=== PATIENT | male | born 1945 | race Caucasian/White ===

== ENCOUNTER → 2016-11-08 | Outpatient (CLI) | payer MEDICARE, OTHER ==
--- NOTE | 2016-11-08 14:02 | CT ---
EXAM DESCRIPTION: CTA Runoff CLINICAL HISTORY: 71 years, Male, AAA COMPARISON: June 06, 2007 TECHNIQUE: CTA of the abdomen and pelvis with bilateral lower extremity runoff was performed with IV contrast including 3D reformatted images. This exam was performed according to our departmental dose-optimization program, which includes automated exposure control, adjustment of the mA and/or kV according to patient size and/or use of iterative reconstruction technique. FINDINGS: There is a 3.0 cm infrarenal abdominal aortic aneurysm, significantly decreased in size from the patient's prior exam. Again seen are mild mural calcifications at the origins of the celiac axis and superior mesenteric artery without significant stenosis. Bilateral accessory renal arteries are noted,, probably 2 on each side. There is some calcification at the origin of both main renal arteries with at least mild stenosis at the origin of the main left renal artery. An aortobifemoral graft is present without apparent complication. The [place] distal abdominal aorta, common, internal and external iliac arteries are likely thrombosed. There is no evidence of anastomotic stenosis in either iliac limb. Calcified and noncalcified plaque results in moderate short segment stenosis of the right common femoral artery. The right profunda femoral artery is perfused. There is mural calcification in the right superficial artery resulting in mild to moderate short segment stenosis at several levels. Mild atherosclerotic disease involves the right popliteal artery without stenosis or aneurysm. There is mild to moderate atherosclerotic disease in the right lower extremity below the level of the right knee with patency of at least the right peroneal artery at the level of the right ankle. There is diffuse mild atherosclerotic disease involving the left common and superficial femoral arteries with only mild short segment stenosis at 1 and 2 levels in the left SFA. The left profunda femoral artery is perfused. The left popliteal artery is fairly well-maintained with only mild mural calcification but no stenosis or aneurysm. There is diffuse moderate atheromatous disease in the left lower extremity below the level of the left knee with patency of the left posterior tibial artery at the level of the left ankle. A small hiatal hernia is only partially visualized. The spleen is enlarged, measuring at least 16 cm in length. There are few tiny round low density right renal lesions which are too small to characterize but likely represent cysts. Surgical clips in the right lower quadrant are likely related to prior appendectomy. There is colonic diverticulosis without diverticulitis. IMPRESSION: Aortobifemoral graft in place without apparent complication. A 3 cm infrarenal abdominal aortic aneurysm lies just superior to the origin of the graft from the abdominal aorta, significantly decreased in size from the patient's previous CT performed in June,. AAA Size: Follow-up Recommendation : 2.6-2.9 cm Every 5 years 3.0-3.4 cm Every 3 years 3.5-3.9 cm Every 1 year 4.0-4.4 cm Every 1 year, vascular consultation recommended 4.5-5.4 cm Every 6 months, vascular consultation recommended >5.5 cm Vascular surgery consultation recommended 1. J Vasc Surg. 2009 Feb;50(4 Suppl):S2-49 2. For aortas with maximum diameter of 2.6-2.9 cm meeting the criteria for AAA (>50% of proximal normal segment) Mild to moderate atherosclerotic vascular disease in both lower extremities as detailed above. No focal high-grade stenosis. Colonic diverticulosis without diverticulitis and other nonacute findings as detailed above. Electronically signed by: Cesario Moreno MD 11/08/2016 2:02 PM CDT Workstation: [email or web address]
== END | disposition home or self-care (01) ==
LOC: CT 07:41
PROVIDERS: ATTEND Nuclear Medicine Nuclear Cardiology
DX: I71.4 Abdominal aortic aneurysm, without rupture (principal)

== ENCOUNTER → 2017-04-01 | Outpatient (CLI) | payer MEDICARE, OTHER | END | disposition home or self-care (01) | LOC: GMAB 14:02 | PROVIDERS: ATTEND Family Medicine | DX: Z12.5 Encounter for screening for malignant neoplasm of prostate (principal); I10 Essential (primary) hypertension ==

== ENCOUNTER → 2017-04-09 | Outpatient (CLI) | payer MEDICARE, OTHER ==
--- NOTE | 2017-04-10 07:47 | CT ---
EXAM DESCRIPTION: Chest w/o Contrast CT. CLINICAL HISTORY: COUGH COMPARISON: None. TECHNIQUE: Spiral-axial scans at 5.0 mm intervals through the lungs and thorax without IV contrast. Coronal and sagittal 2.0 Mm reconstructions. Total Exam DLP: 678.83 mGy-cm. This exam was performed according to our departmental dose-optimization program which includes automated exposure control, adjustment of the mA and/or kV according to patient size and/or use of iterative reconstruction technique; to reduce radiation dose to as low as reasonably achievable (ALARA). FINDINGS: Bilateral prominent airspaces and small blebs throughout the lung parenchyma more prevalent in the upper lung gonzalez than the lower gonzalez. Radio-dense, oval-shaped mass with lobulated borders and no definite spiculation is noted abutting the right middle lobe bronchial branches and right middle lobe pulmonary arterial branches. The mass measures approximately 2.2 cm craniocaudally and 2.4 x 1.6 cm in the axial plane, (series 2, image 41). No associated calcifications. Thickened bronchial rousseau abutting the mass. 10 x 9 mm nodule which is dense but with partially lobulated and smooth borders in the lateral anterior inferior right middle lobe (image 49), just above/anterior to the diaphragm. No associated calcifications. There may be a segment slightly smaller nodule more medially abutting the diaphragm. Groundglass densities peripherally in the lower aspect of the right upper lobe. No pleural effusion or pneumothorax bilaterally. Heterogeneously dense thyroid gland bilaterally with no soft tissue masses or lymph nodes abutting the gland in the base of the neck. Small lymph nodes in the upper mediastinum. Lymph nodes in the azygos region and short axis measurement 7 mm and 9 mm. Short axis lymph node in the anterior superior right hilum 9 mm. Subcarinal lymph node short axis 7 mm. Lymph node in the superior left hilum. Short axis 4.5 mm. Evaluation of mediastinum and hilum for lymph nodes and soft tissue masses is limited due to lack of IV contrast. Atherosclerotic calcifications in the proximal brachiocephalic vessels and thoracic aorta. Coronary artery calcifications. No enlarged lymph nodes in the axillary regions. No subdiaphragmatic fluid or free air in the included peritoneal space. 1 x 1.5 cm enlargement of the superior right adrenal gland. Hounsfield density -5. Calcification in the included spleen. Multiple levels of thoracic spondylosis. Degenerative changes in the left glenohumeral joint. Also in the bilateral sternoclavicular joints and the right glenohumeral joint. No bone destruction. IMPRESSION: 1. Oval-shaped mostly smooth bordered 2.4 cm mass in the inferior right hilum and medial aspect of the right middle lobe which has suspicious findings for malignancy. One enlarged lymph node in the superior right hilum. 10 mm nodule in the inferior lateral subpleural right middle lobe which is suspicious findings for metastasis. Emphysematous changes more prevalent in the upper lung gonzalez and peripheral groundglass infiltrate in the right upper lobe. Consider follow-up scan with IV contrast for better definition of mediastinal and hilar adenopathy in the right lung tumors. Consider percutaneous versus endobronchial tissue sampling for diagnosis. 2. Spondylosis thoracic spine. Right adrenal adenoma. Electronically signed by: Leonardo Wagner MD 04/10/2017 7:47 AM [facility]
== END | disposition home or self-care (01) ==
LOC: CT 16:23
PROVIDERS: ATTEND Family Medicine
DX: R05 Cough (principal)

== ENCOUNTER → 2017-04-16 | Outpatient (CLI) | payer MEDICARE, OTHER ==
--- NOTE | 2017-04-17 08:49 | CT ---
EXAM DESCRIPTION: Chest w/Contrast CT. CLINICAL HISTORY: COUGH. Right hilar mass. Right middle lobe nodule. COMPARISON: CT scan of the chest without IV contrast 04/09/2017. TECHNIQUE: Spiral-axial scans at 2.5 mm intervals through the lungs and thorax with IV contrast. Helical 2.5 mm lung algorithm axial reconstructions. Helical coronal and sagittal 2.0 Mm reconstructions. No adverse reactions. Total Exam DLP: 752.40 mGy-cm. This exam was performed according to our departmental dose-optimization program which includes automated exposure control, adjustment of the mA and/or kV according to patient size and/or use of iterative reconstruction technique; to reduce radiation dose to as low as reasonably achievable (ALARA). FINDINGS: Bilateral thyroid gland enhancement in the base of the neck. No abnormal lymph nodes in the base of the neck. No enlarged lymph nodes in the mediastinum. Normal enhancement of the great vessels. No adenopathy in the axillary regions. 2 adjacent nodes in the superior right hilum measuring 8 mm and 1 cm in the short axis. These are inferior to the origin of the right upper lobe pulmonary bronchus. More inferior oval-shaped mass measuring 2.1 x 1.3 cm between the right middle lobe bronchus and the right middle lobe pulmonary artery. Second morris/mass more posterior to the bronchus measures 1.4 x 1.0 cm. Both nodes well-demonstrated series 102, image 78. These nodes are medial to the mass described on the prior CT scan which is abutting pulmonary artery and pulmonary vein branches and bronchial branches (images 78-86). This mass does not particularly enhance, dimensions 4.2 cm transverse, 2.1 cm AP, and 2.6 cm craniocaudal. A third node approximately 1.2 x 1.2 cm is more inferior and posterior abutting the right lower lobe pulmonary artery and bronchus (image 79). Small nodes in the azygos chain AP window and left hilum. Again noted is centrilobular emphysematous changes in the bilateral upper lobes with groundglass density in the lateral segment right middle lobe 12 millimeter soft tissue nodule with no calcifications and no definite spiculations in the subpleural lateral base of the lateral segment of the right middle lobe (image 100), No abnormal enhancement in the included spleen liver pancreas or kidneys. No abnormal adrenal enhancement. Atherosclerotic changes in the thoracic and abdominal aorta. IMPRESSION: 1. Abnormal right hilar nodes abutting the right hilar mass, more distinctly visualized compared to the prior study. These nodes and the mass appear to be accessible for transbronchial tissue sampling. 12 mm nodule in the subpleural lateral inferior right middle lobe should be amenable to percutaneous image guided biopsy. The peripheral right hilar mass is interpreted to be to closely abutted by right pulmonary arterial and vein branches for percutaneous tissue sampling. Electronically signed by: Leonardo Wagner MD 04/17/2017 8:48 AM [employer]
== END ==
LOC: CT 10:07
PROVIDERS: ATTEND Family Medicine
DX: R05 Cough (principal); R91.8 Other nonspecific abnormal finding of lung field

== ENCOUNTER → 2018-04-09 | Outpatient (CLI) | payer MEDICARE, OTHER | LOC: GMAE 10:45 | PROVIDERS: ATTEND Family Medicine | DX: I10 Essential (primary) hypertension (principal) ==

== ENCOUNTER 2018-06-16 09:30 | Inpatient (IN) | payer MEDICARE, OTHER ==
--- NOTE | 2018-06-16 09:52 | ED.PDOC ---
History of Present Illness - General Chief Complaint: Respiratory Problem Stated Complaint: Cough, congestion Time Seen by Provider: 06/16/18 09:45 Source: patient Exam Limitations: no limitations - History of Present Illness Initial Comments: Patient presents with dyspnea, cough, and congestion for one week. He said he did have some mild right sided chest pain on three different occasions last week that resolved. His dyspnea is worse with coughing and activity. 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 He denies pain at this time or any other symptoms. Timing/Duration: 1 week Severity: mild Improving Factors: rest Worsening Factors: other - exertion Associated Symptoms: other - as in HPI Allergies/Adverse Reactions: Allergies NO KNOWN ALLERGY Allergy (Unverified 12/06/14 10:13) Home Medications: Ambulatory Orders Aspirin [Baby Aspirin] 162 mg PO BEDTIME 12/06/14 Losartan Potassium [Cozaar] 100 mg PO BEDTIME 12/06/14 Simvastatin [Zocor] 40 mg PO BEDTIME 12/06/14 Carvedilol 3.125 mg PO BID 06/16/18 Celecoxib 200 mg PO DAILY 06/16/18 Omeprazole [Omeprazole Dr] 20 mg PO DAILY 06/16/18 Simvastatin 40 mg PO BEDTIME 06/16/18 Review of Systems - Review of Systems Constitutional: States: no symptoms reported EENTM: States: no symptoms reported Respiratory: States: see HPI Gastrointestinal/Abdominal: States: see HPI Genitourinary: States: no symptoms reported Musculoskeletal: States: no symptoms reported Skin: States: no symptoms reported Neurological: States: no symptoms reported Endocrine: States: no symptoms reported Hematologic/Lymphatic: States: no symptoms reported Past Medical History (General) - Patient Medical History Hx Stroke: No Hx Cardiac Disorders: Yes - arrhythmia Hx Congestive Heart Failure: No Hx Hypertension: Yes Hx Diabetes: No Hx Gastroesophageal Reflux: Yes 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 - chemo/rad, finished 05/2017 - Vaccination History Hx Influenza Vaccination: Yes - 2018 Hx Pneumococcal Vaccination: No - Social History Hx Tobacco Use: Yes Family Medical History - Family History Father Family History: No Known Living Status: Physical Exam - Physical Exam General Appearance: Alert Eye Exam: bilateral normal Ears, Nose, Throat: normal ENT inspection Neck: non-tender, full range of motion, supple Respiratory: wheezing - right upper, middle, and lower lobe expiratory wheezing Cardiovascular/Chest: normal peripheral pulses, regular rate, rhythm Gastrointestinal/Abdominal: normal bowel sounds, non tender, soft Back Exam: normal inspection, no CVA tenderness Extremity: normal range of motion, non-tender, normal inspection Neurologic: no motor/sensory deficits, alert, normal mood/affect, oriented x 3 Skin Exam: normal color Lymphatic: no adenopathy Progress - Progress Progress: 06/16/18 12:44 Laboratory Tests 06/16/18 06/16/18 06/16/18 10:04 10:04 10:04 WBC 3.5 L RBC 3.07 L Hgb 12.4 L Hct 35.7 L MCV 116.1 H MCH 40.3 H MCHC 34.9 RDW 14.6 H Plt Count 119 L MPV 7.3 L Absolute Neuts (auto) 3.00 Absolute Lymphs (auto) 0.40 L Absolute Monos (auto) 0.20 Absolute Eos (auto) 0.00 Absolute Basos (auto) 0.00 Neutrophils % 84.3 H Lymphocytes % 10.0 L Monocytes % 5.5 Eosinophils % 0.1 L Basophils % 0.1 Normal RBC Morphology Plts katlyn decreased Sodium 132 L Potassium 3.4 L Chloride 100 L Carbon Dioxide 24 Anion Gap 11.4 L BUN 15 Creatinine 1.06 BUN/Creatinine Ratio 14.2 Random Glucose 104 Serum Osmolality 265.7 L Lactic Acid Calcium 8.5 Total Bilirubin 1.3 H AST 22 ALT 21 Alkaline Phosphatase 62 Creatine Kinase 37 L CK-MB (CK-2) 1.0 CK-MB (CK-2) % 2.70 Troponin I 0.02 B-Natriuretic Peptide 281.0 H* Serum Total Protein 6.6 Albumin 3.1 L Globulin 3.5 Albumin/Globulin Ratio 0.9 L 06/16/18 12:05 WBC RBC Hgb Hct MCV MCH MCHC RDW Plt Count MPV Absolute Neuts (auto) Absolute Lymphs (auto) Absolute Monos (auto) Absolute Eos (auto) Absolute Basos (auto) Neutrophils % Lymphocytes % Monocytes % Eosinophils % Basophils % Normal RBC Morphology Sodium Potassium Chloride Carbon Dioxide Anion Gap BUN Creatinine BUN/Creatinine Ratio Random Glucose Serum Osmolality Lactic Acid 1.7 Calcium Total Bilirubin AST ALT Alkaline Phosphatase Creatine Kinase CK-MB (CK-2) CK-MB (CK-2) % Troponin I B-Natriuretic Peptide Serum Total Protein Albumin Globulin Albumin/Globulin Ratio Duonebs x one give. D-dimer elevated. CTA showed tumor in right middle lobe with increasing pleural effusion. neutrophils 84.3%. wbc 3.5 Patient was given Rocephin 1 gram IV and Azithromycin 500 mg po in the E.R. and admitted for pneumonia. Patient has refused transfer to another hospital. 06/16/18 12:48 Departure - Departure Clinical Impression: Pneumonia Disposition: Admit Patient Condition: Fair Departure Forms: ED Discharge - Pt. Copy, Patient Portal Self Enrollment Diet: other - as per hospitalist Home Medications: Ambulatory Orders Aspirin [Baby Aspirin] 162 mg PO BEDTIME 12/06/14 Losartan Potassium [Cozaar] 100 mg PO BEDTIME 12/06/14 Simvastatin [Zocor] 40 mg PO BEDTIME 12/06/14 Carvedilol 3.125 mg PO BID 06/16/18 Celecoxib 200 mg PO DAILY 06/16/18 Omeprazole [Omeprazole Dr] 20 mg PO DAILY 06/16/18 Simvastatin 40 mg PO BEDTIME 06/16/18
--- NOTE | 2018-06-16 11:03 | RAD ---
EXAM DESCRIPTION: Chest,2 Views CLINICAL HISTORY: 73 years Male, wheezing, history or right lung cancer COMPARISON: CT chest dated dated April 16, 2017. TECHNIQUE: PA and lateral radiographs of the chest were obtained. FINDINGS: The trachea appears midline. The cardiomediastinal silhouette is within normal limits. The pulmonary vasculature appears unremarkable. Interval development of airspace opacification in the right middle and lower lobes concerning for underlying pneumonia although underlying malignancy cannot be completely excluded. Atelectatic changes are noted at the right lung base with scarring related interstitial changes. Probable small right pleural effusion. Focal 1 cm nodular opacity in the right lower lobe could represent a noncalcified nodule in comparison to the recent chest CT dated April 16, 2017. IMPRESSION: 1. Interval development of consolidative changes in the right middle and lower lobes concerning for underlying pneumonia, although underlying malignancy cannot be completely excluded in comparison to prior CT chest dated April 16, 2017. Right lower lobe atelectatic changes with probable small pleural effusion. If there is clinical index of suspicion for lung cancer, a CT chest with contrast is recommended for further evaluation. Electronically signed by: Francisco Pop MD 06/16/2018 11:00 AM [facility]
[2018-06-16] MEDS ORDERED: ACETAMINOPHEN 325 MG TAB PO ONE (11:17)
[2018-06-16] MEDS ORDERED: SODIUM CHLORIDE 0.9% 1000ML 1,000 ML IVS PRN (11:18)
[2018-06-16] MEDS ORDERED: IPRATROPIUM/ALBUTEROL 3 ML VIAL NEB ONE ×2 (11:42→11:43)
--- NOTE | 2018-06-16 12:28 | CT ---
EXAM DESCRIPTION: CTA Chest: Computed Tomography. CLINICAL HISTORY: elevated d-dimer, lung CA, dyspnea COMPARISON: CT scan of the thorax, 04/16/2017. TECHNIQUE: Spiral-axial scans at 2.5 x 2.5 mm intervals through the pulmonary arteries and chest after bolus infusion of IV contrast. Lung algorithm 1.5 x 2.5-mm axial reconstructions. Coronal and sagittal 2 x 2 Mm reconstructions. 10.0 mm PE oblique 3-D reformatted images. No adverse reactions. Total Exam DLP: 1012.06 mGy-cm. This exam was performed according to our departmental CT dose-optimization program which includes automated exposure control, adjustment of the mA and/or kV according to patient size and/or use of iterative reconstruction technique; to reduce radiation dose to as low as reasonably achievable (ALARA). FINDINGS: Heart and great vessels: Pulmonary artery is well demonstrated from the main pulmonary artery to the bilateral proximal subsegmental branches of the pulmonary arteries with no filling defects. No anomalous vascularity. Atherosclerotic calcifications on the aortic arch and the descending thoracic aorta. Atherosclerotic calcifications also in the brachiocephalic vessels and coronary arteries. Lungs and airways: Prominent reticular aeration in the peripheral right upper lobe laterally along with right upper lobe volume loss and multiple blebs and bulla associated with the parenchymal abnormalities. New, multifocal groundglass infiltrates in the right middle lobe and right lower lobe. Also new right perihilar consolidation and fibrosis. Centrilobular blebs left upper lobe and left lower lobe. Scattered tiny groundglass densities left lung. Pleura and spaces: Large right pleural effusion. Minimal left pleural effusion and thickening. No pneumothorax. Brittany and mediastinum: No enlarged lymph nodes or soft tissue masses. Chest wall soft tissues, lower neck, and axilla: No enlarged lymph nodes or soft tissue masses. Proximal mid and distal mid esophagus dilated by air and fluid. Upper abdomen: No free air or fluid in the included peritoneal space. Normal size and enhancement of the included spleen and adrenal glands. Gallbladder partially visualized. Moderate atherosclerotic involvement with calcifications upper abdominal aorta and major included branch vessels. Osseous structures: Minimal spondylosis at multiple levels. Arthrosis of the bilateral sternoclavicular joints left more severe in the right and arthrosis right glenohumeral joint. No lytic or blastic lesions. IMPRESSION: 1. CTA of the pulmonary arteries showing no evidence of acute or significant chronic pulmonary embolus. Atherosclerotic changes of the aorta no evidence of aneurysm or rupture. Atherosclerosis brachiocephalic vessels and coronary arteries. 2. Significant volume loss in the right hemithorax since cancer treatment with reticulation and fibrosis in the right upper lobe along with emphysematous changes. Scattered multifocal groundglass densities indicating a eosinophilic like response in the right lower lobe with volume loss. Also new large right pleural effusion. Left lung is stable. 3. No significant increase in lymph nodes or soft tissue masses in the mediastinum left hilum, or chest wall. Moderate degenerative changes in the thorax. Electronically signed by: Leonardo Wagner MD 06/16/2018 12:26 PM [employer]NAL [employer]
[2018-06-16] MEDS ORDERED: cefTRIAXone SODIUM 1 GM in SODIUM CHL 0.9% 50ML MIN-BAG+ 50 ML IVPB ONE (12:36)
[2018-06-16] MEDS ORDERED: AZITHROMYCIN 250 MG TAB PO ONE (12:37)
[2018-06-16] MEDS ORDERED: SODIUM CHL 0.9% 50ML MIN-BAG+ 50 ML IVPB ONE ×2 (12:47→21:02)
[2018-06-16] MEDS ORDERED: cefTRIAXone SODIUM 1 GM VIAL ONE (12:47)
--- NOTE | 2018-06-16 13:03 | HP ---
SUPERVISING PHYSICIAN: Zhang Perez M.D. CHIEF COMPLAINT: Cough and congestion. HISTORY OF PRESENT ILLNESS: Mr. 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 Today he presented to the [facility] complaining of increasing dyspnea, cough and congestion that started last Saturday. He had tried [id number] remedies having no success in treatment. He was going to go to Dr. Perez's office today but was having significant shortness of breath and then presented to the [facility]. [facility] In the E. R[facility] he was denying any chest pains but was obviously short of breath with any exertional effort even at rest. Vital signs showed he was tachycardic at 127, satting 87% on room air with a temperature 98.8 and blood pressure 91/67. Initial chest x-ray indicated he had the interval development of consolidative changes in the right middle and lower lobes concerning for underlying pneumonia. His lab work indicated he had an elevated D-dimer at 7.32. Given that he was tachycardic and short of breath a CT of the chest was done to further rule out any pulmonary embolus. Per radiology interpretation on the CTA of the chest there was note of no evidence of acute significant cardiopulmonary embolus. There was note of significant volume loss in the right hemithorax since his cancer treatment with reticulation and fibrosis in the right upper lobe along with emphysematous changes and scattered multifocal glass densities indicating eosinophilic like response in the lower lobe with volume loss. There is also note of a new large right pleural effusion. The left lung base was noted to be stable. The patient was given some fluids and started on antibiotics to include Rocephin initially and azithromycin, and given supplemental oxygen which did raise his O2 levels up to 96% on 3.5 liters nasal cannula. Given the patient's symptoms and underlying co-morbidities to include lung cancer and findings on CT concerning for developing right sided pneumonia, Dr. Robles, E. R. physician, requested the patient be admitted for ongoing treatment of right sided pneumonia. PAST MEDICAL HISTORY: 1. History of hypertension. 2. Abdominal aortic aneurysm. 3. Coronary artery disease. 4. Peripheral vascular disease. 5. Diabetes mellitus. 6. Recent diagnosis of small cell lung cancer with metastasis to brain diagnosed in 2018. 7. Chronic obstructive pulmonary disease. PAST SURGICAL HISTORY: 1. Aortic aneurysm repair in 2007. 2. Peripheral vascular disease status post aortofemoral bypass surgery 2007. HOME MEDICATIONS: 1. Melatonin 5 mg at bedtime. 2. B12 1,000 mcg at bedtime. 3. Unasyn 25 mg at bedtime. 4. Omeprazole 20 mg daily. 5. Baby aspirin 162 mg at bedtime. 6. Simvastatin 40 mg at bedtime. 7. Celebrex 200 mg daily. 8. Zocor 40 mg daily. 9. Cozaar 100 mg at bedtime. 10. Carvedilol 3.125 mg b.i.d. ALLERGIES: NO KNOWN DRUG ALLERGIES. FAMILY HISTORY: There is a history of coronary artery disease in the family. 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 He is and has 2 children. Lives in [place], [place]. He has smoked at least 1.5 packs a day for 55 years. He denies any significant alcohol usage except for occasional beer consumption. Denies any illicit drug use. REVIEW OF SYSTEMS: CONSTITUTIONAL: Positive for chills, fever, general malaise. No reported unintentional weight loss. HEENT: Positive for nasal congestion, frequent headaches due to brain metastasis. Negative for any visual disturbances, ear aches, sore throat. RESPIRATORY: As noted in history of present illness, increasing shortness of breath, wheezing, exertional dyspnea and productive cough. GASTROINTESTINAL: Negative for any abdominal pains, constipation, diarrhea. GENITOURINARY: Denies any dysuria, hematuria or polyuria. SKIN: No reported rashes, lesions, moles. NEUROLOGIC: Frequent headaches secondary to metastasis to the brain currently on Dexamethasone. Denies any ataxia, syncopal episodes, seizure activity, visual disturbances, other focal deficits. HEMATOLOGY: Denies any unexplained bleeding, easy bruising. PHYSICAL EXAMINATION: VITAL SIGNS: Temperature in the E. R. was 98.8, pulse 127, blood pressure 91/67, respirations 30, satting 87% on room air. After initiation of treatment with breathing treatments, he was satting 93% on nasal cannula at 4 liters, blood pressure with fluids was up to 101/43 and he was continuing to show to be tachycardic at 119. Admission weight 99.6 kg. GENERAL: The patient appears to be well nourished, well hydrated. He obviously does not feel good but is in no apparent acute distress. HEENT: Tympanic membranes were clear bilaterally. Oropharynx was pink and moist without any notable lesions or rashes. NECK: Supple, non-tender. Full range of motion. No jugular venous distention. CHEST: Lung sounds were diminished throughout with some inspiratory and expiratory wheezing more prominent on the right compared to the left. CARDIOVASCULAR: Regular rate and rhythm, showing to be tachycardic on the monitor. ABDOMEN: Soft, non-tender. Positive bowel sounds. EXTREMITIES: Moves all extremities ad karmen. There is no obvious motor deficits. No clubbing, cyanosis or edema. NEUROLOGIC: Cranial nerves II-XII are grossly intact. Facial features were symmetrical. Extraocular movements are within normal limits. There is no notable nystagmus. He was alert and oriented times three with no other motor or focal sensory deficits. SKIN: Normal color, pink, warm with no lesions or rashes. LABORATORY: CBC shows white count 3,500 with hemoglobin 12.4, hematocrit 35.7. RBC indices indicate a macrocytic presentation with platelet count 119,000. Differential does show a left shift with 2+ macrocytosis, 1+ anisocytosis. Coags show normal PT and PTT. D-dime is elevated at 7.32. Chemistry showed a mild hyponatremia with sodium 132, potassium 3.4, carbon dioxide 24, BUN 15, creatinine 1.06, glucose 104, lactic acid 1.7, calcium 8.5. Bilirubin slightly elevated at 1.3. All other liver enzymes were showing to be within normal limits. Troponin was 0.02, BNP was slightly elevated at 281. Urinalysis was pending. MICROBIOLOGY: Influenza A and B by PCR after he presented to the floor showed to be positive for A, negative for B. Sputum culture is pending. RADIOLOGY: Initially his chest x-ray in the E. R., single view chest, per radiology interpretation again showed interval development of a consolidative process changes in the right middle lobe and lower lobes concerning for pneumonia. There was also note of right lower lobe atelectasis changes of probable small pleural effusion. This was followed-up with CT of the chest and per radiology interpretation showed pulmonary arteries well demonstrated with main pulmonary artery to be with no filling defects. No evidence of acute significant chronic pulmonary embolus. There was note of significant volume loss in the right hemithorax since cancer treatment with reticulation and fibrosis in the right upper lobe along with emphysematous changes and scattered multifocal groundglass densities indicating eosinophilic like response in the right lower lobe with volume loss. Also note of a new large right pleural effusion. Left lung showed to be stable. There were no significant increase in lymph nodes or soft tissue masses in the mediastinum, left hilum or chest wall. ASSESSMENT: 1. Exacerbation of chronic obstructive pulmonary disease with right middle and lower lobe pneumonia. 2. Viral pneumonia with positive Influenza A with a secondary bacterial pneumonia as noted in #1. 3. Sepsis with the patient being tachycardic and hypotensive, mildly afebrile with leukocytosis secondary to #1 and #2. 4. History of small cell lung cancer status post radiation and chemotherapy showing to be stable with metastasis stable to the brain having received radiation therapy. 5. Electrolyte imbalance with hyponatremia and hypokalemia secondary to underlying small cell lung cancer and pneumonia process. 6. Elevated D-dimer with no evidence of a pulmonary embolus on CTA of the chest probably due to underlying metastatic and cancer process involving the lung as well as developing pneumonia. 7. History of hypertension with last echocardiogram completed in 2008 with a normal systolic function and ejection fraction of 65%. 8. Diabetes mellitus type 2. 9. Chronic tobacco abuse and nicotine addiction in a patient with a history of chronic obstructive pulmonary disease. PLAN: The patient is going to be admitted to the Medical/Surgical floor for initiation and treatment of pneumonia, community acquired. Given that he has multiple risk factors, including current findings on CTA of the chest to indicate a significant pneumonia process with underlying lung cancer, we are going to treat him aggressively as well since he had positive flu. Will start him on Cefepime and Levaquin for concerns for possible Pseudomonas and add vancomycin for coverage of gram positives with concerns for multidrug resistant Staphylococcus aureus. He will have aggressive pulmonary hygiene with DuoNeb breathing treatments. Will start him on some Solu-Medrol given his significant amount of COPD and emphysema and is wheezing, will give initial dose of 125 mg. Will continue with Solu-Medrol 60 mg every 6 hours for 3 doses and reevaluate in the morning. He will be placed on droplet isolation due to flu. Will start him on Tamiflu for further treatment of Influenza A. For the electrolyte imbalance will go ahead and give him a bolus of normal saline and continue with an infusion of normal saline with 20 of potassium at 80 an hour. In regards to the large pleural effusion, I will consult with Dr. Francis tomorrow and see if there is any need for possible surgical consultation and thoracentesis at this point. He will be on DVT prophylaxis as per protocol. He will be on insulin sliding scale per protocol. Will anticipate length of stay to be at least 2 to 3 days. Once he is able to transition to outpatient management he will need complete followup with his primary care provider, Dr. Perez, his rolls baker who is Dr. Valentin and his oncologist, Dr. Morrow. Until he can transition to outpatient management will continue to monitor and treat as needed. #[id number] [facility]
[2018-06-16] MEDS ORDERED: ONDANSETRON INJ 4 MG/2 ML VIAL IV PRN (13:06)
[2018-06-16] MEDS ORDERED: ALBUTEROL SULFATE 2.5 MG/3 ML VIAL NEB PRN (13:06)
[2018-06-16] MEDS ORDERED: MAGNESIUM HYDROXIDE 30 ML UD PO PRN (13:06)
[2018-06-16] MEDS ORDERED: IBUPROFEN 400 MG TAB PO PRN (13:06)
[2018-06-16] MEDS ORDERED: ACETAMINOPHEN 325 MG TAB PO PRN (13:06)
[2018-06-16] MEDS ORDERED: methylPREDNISolone SODIUM SUC 125 MG/2 ML VIAL IV ONE (13:55)
[2018-06-16] MEDS ORDERED: BUDESONIDE NEBS 0.5 MG/2 ML VIAL NEB ONE (13:56)
[2018-06-16] MEDS: IV SET AND CAP CHANGE INJ INJ SCH (14:34)
[2018-06-16] MEDS: KCL 20 MEQ/NS 1,000 ML IVS PRN (14:36)
[2018-06-16] MEDS ORDERED: SODIUM CHLORIDE 0.9% 500ML 500 ML IVS ONE (14:38)
[2018-06-16] MEDS ORDERED: VANCOMYCIN PER PHARMACY INJ SCH (15:00)
[2018-06-16] MEDS: levoFLOXacin 750MG IV 750 MG in PREMIX BAG 1 BAG IVPB SCH (15:34)
[2018-06-16] MEDS: BIFIDOBACTERIUM INFANTIS 4 MG CAP PO SCH (15:34)
[2018-06-16] MEDS: OSELTAMIVIR 75 MG CAP PO SCH ×2 (15:35→20:03)
[2018-06-16] MEDS ORDERED: DEXTROSE 50% 25 GM/50 ML SYG IV PRN (16:33)
[2018-06-16] MEDS ORDERED: GLUCAGON INJ 1 MG VIAL SUBCU PRN (16:33)
[2018-06-16] MEDS ORDERED: NON-FORMULARY MEDICATION 1 EA MIS (Melatonin [Melatonin] 5 MG) PO PRN (16:35)
[2018-06-16] MEDS ORDERED: SODIUM CHLORIDE 0.9% 250ML 250 ML ONE (16:53)
[2018-06-16] MEDS ORDERED: VANCOMYCIN HCL INJ 1,000 MG VIAL IVPB ONE (16:53)
[2018-06-16] MEDS ORDERED: VANCOMYCIN HCL INJ 500 MG VIAL ONE (16:53)
[2018-06-16] MEDS: VANCOMYCIN HCL INJ 1,000 MG, VANCOMYCIN HCL INJ 250 MG in SODIUM CHLORIDE 0.9% 250ML 25... IVPB SCH (16:59)
[2018-06-16] MEDS: PANTOPRAZOLE SODIUM IV 40 MG VIAL IV SCH (16:59)
[2018-06-16] MEDS: IPRATROPIUM/ALBUTEROL 3 ML VIAL INH SCH ×2 (17:01→20:01)
[2018-06-16] MEDS: methylPREDNISolone SODIUM SUC 125 MG/2 ML VIAL IV SCH ×2 (17:16→23:50)
[2018-06-16] MEDS: BUDESONIDE NEBS 0.5 MG/2 ML VIAL NEB SCH (20:01)
[2018-06-16] MEDS: SIMVASTATIN 20 MG TAB PO SCH (20:03)
[2018-06-16] MEDS: LOSARTAN POTASSIUM 100 MG TAB PO SCH (20:04)
[2018-06-16] MEDS: ASPIRIN (CHEWABLE) 81 MG TAB PO SCH (20:04)
[2018-06-16] MEDS: CARVEDILOL 3.125 MG TAB PO SCH (20:04)
[2018-06-16] MEDS: CYANOCOBALAMIN 1,000 MCG TAB PO SCH (20:04)
[2018-06-16] MEDS: TEMAZEPAM 15 MG CAP PO PRN (20:39)
[2018-06-16] MEDS: DOXYLAMINE SUCCINATE 25 MG PO SCH (20:39)
[2018-06-16] MEDS ORDERED: CEFEPIME 2 GM VIAL ONE (21:02)
[2018-06-16] MEDS: INSULIN LISPRO 100 UNITS/ML PEN SUBCU SCH (21:08)
[2018-06-16] MEDS: CEFEPIME 2 GM in SODIUM CHL 0.9% 50ML MIN-BAG+ 50 ML IVPB SCH (21:09)
[2018-06-17] MEDS ORDERED: VANCOMYCIN HCL INJ 500 MG VIAL ONE ×3 (03:49→19:14)
[2018-06-17] MEDS ORDERED: VANCOMYCIN HCL INJ 1,000 MG VIAL IVPB ONE ×3 (03:49→19:16)
[2018-06-17] MEDS ORDERED: SODIUM CHLORIDE 0.9% 250ML 250 ML ONE ×3 (03:49→19:15)
[2018-06-17] MEDS: VANCOMYCIN HCL INJ 1,000 MG, VANCOMYCIN HCL INJ 250 MG in SODIUM CHLORIDE 0.9% 250ML 25... IVPB SCH ×2 (03:52→16:52)
[2018-06-17] MEDS ORDERED: SODIUM CHL 0.9% 50ML MIN-BAG+ 50 ML IVPB ONE ×3 (04:43→19:15)
[2018-06-17] MEDS ORDERED: CEFEPIME 2 GM VIAL ONE ×3 (04:44→19:16)
[2018-06-17] MEDS: methylPREDNISolone SODIUM SUC 125 MG/2 ML VIAL IV SCH (05:12)
[2018-06-17] MEDS: CEFEPIME 2 GM in SODIUM CHL 0.9% 50ML MIN-BAG+ 50 ML IVPB SCH ×3 (05:12→21:01)
[2018-06-17] MEDS: PANTOPRAZOLE SODIUM IV 40 MG VIAL IV SCH (05:46)
[2018-06-17] MEDS ORDERED: OMEPRAZOLE CAP 20 MG CAP PO SCH (06:30)
--- NOTE | 2018-06-17 07:20 | RAD ---
EXAM DESCRIPTION: Chest,2 Views CLINICAL HISTORY: Pneumonia COMPARISON: Chest CT June 16, 2018. FINDINGS: Frontal and lateral views of the thorax. Multifocal pneumonia throughout the right middle lobe and right lower lobe is stable in appearance. The small right-sided subpulmonic effusion is less conspicuous with this modality. The heart and mediastinum are stable in appearance. IMPRESSION: Stable multifocal right middle lobe and right lower lobe pneumonia with small effusion. Electronically signed by: Blaine Santos MD 06/17/2018 7:17 AM [facility]
[2018-06-17] MEDS: IPRATROPIUM/ALBUTEROL 3 ML VIAL INH SCH ×4 (08:01→20:20)
[2018-06-17] MEDS: BUDESONIDE NEBS 0.5 MG/2 ML VIAL NEB SCH ×2 (08:01→20:20)
[2018-06-17] MEDS: INSULIN LISPRO 100 UNITS/ML PEN SUBCU SCH ×4 (08:24→21:01)
[2018-06-17] MEDS: CELECOXIB 100 MG CAP PO SCH (08:28)
[2018-06-17] MEDS: BIFIDOBACTERIUM INFANTIS 4 MG CAP PO SCH (08:28)
[2018-06-17] MEDS: OSELTAMIVIR 75 MG CAP PO SCH ×2 (08:28→20:15)
[2018-06-17] MEDS: CARVEDILOL 3.125 MG TAB PO SCH ×2 (08:28→20:16)
[2018-06-17] MEDS: KCL 20 MEQ/NS 1,000 ML IVS PRN (08:33)
[2018-06-17] MEDS ORDERED: AZITHROMYCIN 250 MG TAB PO SCH (09:00)
--- NOTE | 2018-06-17 10:52 | CONS ---
DATE OF CONSULTATION: 06/17/18 HISTORY OF PRESENT ILLNESS: The patient is a 73-year-old male who was admitted through the Emergency Room with shortness of breath, cough, congestion. He self-medicated with [id number] medications and did not improve. He presented to the Emergency Room short of breath and at that time, he was admitted. The patient's history is significant for small cell carcinoma of the right lung with metastasis to the brain. He is status post radiation therapy both for the lung, to the brain and intravenous chemotherapy. The patient states he previously had a pleural effusion which they started to drain at [facility], but decided against it due to its size and I have been asked to consider thoracentesis for the current pleural effusion that was found yesterday on CT scan and chest x-ray. PAST MEDICAL HISTORY: 1. Abdominal aortic aneurysm with repair. 2. Chronic obstructive pulmonary disease. 3. Coronary artery disease. 4. Peripheral vascular disease status post aorto-fem bypass in 2007. 5. Diabetes. CURRENT MEDICATIONS: 1. Omeprazole. 2. Baby aspirin. 3. Simvastatin. 4. Celebrex. 5. Cozaar. 6. Carvedilol. 7. Melatonin. 8. B12. ALLERGIES: NO KNOWN DRUG ALLERGIES. FAMILY HISTORY: Positive for coronary artery disease. SOCIAL HISTORY: The patient is a retired electrical design engineer. He is and has two children. He has a greater than 60 pack year history of tobacco use. He drinks beer occasionally. REVIEW OF SYSTEMS: He had fever, chills and malaise along with wheezing, dyspnea and productive cough. He denies abdominal pain, nausea, vomiting, change in his bowel habits. The patient continues to have headaches associated with his brain disease. PHYSICAL EXAMINATION: GENERAL: The patient is awake, alert, cooperative, in mild to moderate distress. He denies pain, but his respiratory rate is greater than 20 and he is short of breath while breathing. He does state he feels much better than yesterday. HEENT: Sclerae nonicteric. Mucous membranes moist. NECK: Without adenopathy. CHEST: Decreased breath sounds in the right base and bilateral wheezing anteriorly. HEART: Regular rate and rhythm. ABDOMEN: Benign. EXTREMITIES: Without edema. LABORATORY: Normal white count, hemoglobin is low at 11. PT/INR within normal limits, but D-dimer is elevated at 7.32. Creatinine 1.06. BNP slightly elevated. CTA of the chest revealed no pulmonary embolus and showed right sided pleural effusion. ASSESSMENT: 1. The patient with shortness of breath secondary to possible radiation pneumonitis of the right chest, right pleural effusion, influenza and possibly pneumonia along with the underlying small cell carcinoma of the right lung with metastasis to the brain. PLAN: The patient seems to be quite improved since yesterday in his opinion, so there is no acute need for intervention with the thoracentesis, so we will follow the patient. If he does not continue to improve, we will consider thoracentesis with culture, cytology and chemistries as appropriate. #[id number] [facility]
[2018-06-17] MEDS: ENOXAPARIN SODIUM 40 MG/0.4 ML SYG SUBCU SCH (12:01)
--- NOTE | 2018-06-17 13:28 | PN ---
SUPERVISING PHYSICIAN: Tyrese Perez MD DATE: 06/17/18 SUBJECTIVE: The patient notes his breathing has improved significantly overnight although he still continues to require oxygen. Dr. Francis was able to see the patient in consultation this morning and we are currently going to watch and wait in regards to possible thoracentesis as he is showing some improvement overnight with current treatment plan. He has remained afebrile. He has no chest pains, but he has started to have some diarrhea. In fact, he had three episodes overnight. OBJECTIVE: VITAL SIGNS: Temperature 97.1. Pulse 61. Blood pressure 100/61. Respirations 20. Saturation 97% on 3 liters nasal cannula at rest. I&Os show a positive balance of 1060 with 1660 in, 600 out. Weight 99.6 kg. GENERAL: The patient looks like he feels better this morning. He is not quite as dyspneic in appearance. He is alert. CHEST: Lung sounds are slightly improved from yesterday, but significantly diminished towards both bases, more so on the right than the left. HEART: Regular rate and rhythm. ABDOMEN: Obese, but soft and nontender. Positive bowel sounds. EXTREMITIES: No cyanosis, clubbing or edema. NEUROLOGIC: Alert and oriented times three. LABORATORY: White count 4,600, hemoglobin 9.6, hematocrit 27.6, platelet count 100,000 with a left shift noted on differential. Chemistries show normal electrolytes with potassium 4, BUN 60, creatinine 1.06, blood sugars between 177 and 237. Calcification 8.0. Urinalysis within normal limits. MICROBIOLOGY: Influenza A and B positive for A. RADIOLOGY: Chest x-ray this morning per radiologic interpretation shows stable multifocal right mid lobe and right lower lobe pneumonia with small effusion. ASSESSMENT: 1. Exacerbation of chronic obstructive pulmonary disease with right middle and lower lobe pneumonia, community acquired secondary to a recent influenza pneumonitis. 2. Viral pneumonia/pneumonitis secondary to influenza A with a secondary bacterial infection as noted in #1. 3. Sepsis with the patient being tachycardic, hypotensive and mildly afebrile with leukocytosis on admission, secondary to #1 and #2, improving with treatment. 4. History of small cell lung cancer status post radiation and chemotherapy, stable with metastasis stable to the brain having received radiation therapy. 5. Electrolyte imbalance with hyponatremia and hypokalemia, improved and back to baseline with fluids. 6. Elevated D-dimer with no evidence of a pulmonary embolus on CTA, likely due to underlying metastatic and cancer process involving the lung as well as developing pneumonia. 7. History of hypertension with last echocardiogram completed in 2008 with a normal systolic function and ejection fraction of 65% with the patient being mildly hypotensive on admission, but now back to baseline levels with fluid resuscitation. 8. Diabetes mellitus, type 2, stable. 9. Chronic tobacco abuse and nicotine addiction in a patient with a history of chronic obstructive pulmonary disease. PLAN: We will continue with current plan of care at this point with aggressive management with antibiotics to include Levaquin, cefepime and vancomycin with concerns for Pseudomonas and multi-drug resistant Staphylococcus aureus given his past medical history and underlying cancer. He will continue with Solu- Medrol. As he continues to show improvement, we will titrate him down to oral prednisone. We will await reassessment in the morning in regards to possible thoracentesis and Dr. Francis's recommendation. We will repeat labs in the morning as well as chest x-ray. Until he can transition to outpatient management, we will continue to monitor and treat as needed. Again, once discharged, he will need followup with his primary care physician, Dr. Perez, his monitor and storage bin tender, Dr. Valentin, and his oncologist, Dr. Morrow. #[id number] [facility]
[2018-06-17] MEDS ORDERED: cefTRIAXone SODIUM 1 GM in SODIUM CHL 0.9% 50ML MIN-BAG+ 50 ML IVPB SCH (13:30)
[2018-06-17] MEDS: levoFLOXacin 750MG IV 750 MG in PREMIX BAG 1 BAG IVPB SCH (14:51)
[2018-06-17] MEDS ORDERED: MELATONIN 3 MG TAB ONE (19:17)
[2018-06-17] MEDS: TEMAZEPAM 15 MG CAP PO PRN (20:13)
[2018-06-17] MEDS: LOSARTAN POTASSIUM 100 MG TAB PO SCH (20:14)
[2018-06-17] MEDS: ASPIRIN (CHEWABLE) 81 MG TAB PO SCH (20:14)
[2018-06-17] MEDS: CYANOCOBALAMIN 1,000 MCG TAB PO SCH (20:15)
[2018-06-17] MEDS: SIMVASTATIN 20 MG TAB PO SCH (20:15)
[2018-06-17] MEDS: DOXYLAMINE SUCCINATE 25 MG PO SCH (20:17)
[2018-06-18] MEDS: KCL 20 MEQ/NS 1,000 ML IVS PRN ×2 (00:41→16:49)
[2018-06-18] MEDS: VANCOMYCIN HCL INJ 1,000 MG, VANCOMYCIN HCL INJ 250 MG in SODIUM CHLORIDE 0.9% 250ML 25... IVPB SCH (04:20)
[2018-06-18] MEDS ORDERED: CEFEPIME 2 GM VIAL ONE ×3 (04:26→19:04)
[2018-06-18] MEDS ORDERED: SODIUM CHL 0.9% 50ML MIN-BAG+ 50 ML IVPB ONE ×3 (04:26→19:04)
[2018-06-18] MEDS: PANTOPRAZOLE SODIUM IV 40 MG VIAL IV SCH (06:14)
[2018-06-18] MEDS: CEFEPIME 2 GM in SODIUM CHL 0.9% 50ML MIN-BAG+ 50 ML IVPB SCH ×3 (06:22→21:26)
--- NOTE | 2018-06-18 07:24 | RAD ---
EXAM: Two view chest. INDICATION: Pneumonia. COMPARISON: Chest x-ray: 06/17/2018. FINDINGS: Again noted are airspace opacities along the right upper, middle and lower lobes. The left lung is clear. The heart size is stable. There is a small right pleural effusion. There is no pneumothorax. The bones are unremarkable. IMPRESSION: Grossly stable airspace opacities within the right lung Electronically signed by: Eren Chatterjee MD 06/18/2018 7:22 AM [facility] Workstation: [id number]
[2018-06-18] MEDS: INSULIN LISPRO 100 UNITS/ML PEN SUBCU SCH ×4 (08:23→21:09)
[2018-06-18] MEDS: CARVEDILOL 3.125 MG TAB PO SCH ×2 (08:25→20:41)
[2018-06-18] MEDS: BIFIDOBACTERIUM INFANTIS 4 MG CAP PO SCH (08:25)
[2018-06-18] MEDS: CELECOXIB 100 MG CAP PO SCH (08:25)
[2018-06-18] MEDS: OSELTAMIVIR 75 MG CAP PO SCH ×2 (08:25→20:41)
[2018-06-18] MEDS: ENOXAPARIN SODIUM 40 MG/0.4 ML SYG SUBCU SCH (08:26)
[2018-06-18] MEDS: BUDESONIDE NEBS 0.5 MG/2 ML VIAL NEB SCH ×2 (09:01→20:05)
[2018-06-18] MEDS: IPRATROPIUM/ALBUTEROL 3 ML VIAL INH SCH ×4 (09:01→20:05)
[2018-06-18] MEDS ORDERED: MELATONIN 3 MG TAB PO PRN (10:00)
[2018-06-18] MEDS: levoFLOXacin 750MG IV 750 MG in PREMIX BAG 1 BAG IVPB SCH (14:27)
[2018-06-18] MEDS: SIMVASTATIN 20 MG TAB PO SCH (20:40)
[2018-06-18] MEDS: ASPIRIN (CHEWABLE) 81 MG TAB PO SCH (20:41)
[2018-06-18] MEDS: CYANOCOBALAMIN 1,000 MCG TAB PO SCH (20:41)
[2018-06-18] MEDS: TEMAZEPAM 15 MG CAP PO PRN (20:41)
[2018-06-18] MEDS: LOSARTAN POTASSIUM 100 MG TAB PO SCH (20:41)
[2018-06-18] MEDS: DOXYLAMINE SUCCINATE 25 MG PO SCH (20:42)
--- NOTE | 2018-06-18 22:03 | PN ---
DATE: 06/18/18 SUPERVISING PHYSICIAN: Zhang Perez M.D. SUBJECTIVE: The patient feels like he has not made much more progress than yesterday. He has been sitting in a chair. I discussed with him that given his H&H and the pleural effusion on the right and his significant pneumonia process, more likely he will need to have some oxygen once he is discharged and he understands this. I did discuss the fact that if he does drop his H&H anymore, the possibility of doing a transfusion is there certainly to help with his respiratory effort. He has been afebrile. He continues with a mild cough that is nonproductive. OBJECTIVE: VITAL SIGNS: Temperature 97.8, pulse 69, blood pressure 118/63, respirations 18, satting 95% on 3 liters nasal cannula at rest. I's and O's show a positive balance of 1210 with 2810 in, 1500 out. He has had 1 bowel movement. Weight is 99.6 kg. CHEST: Lung sounds are fairly improved from yesterday. He does have some rhonchi heard on the right and more prominent on the lateral posterior aspect towards the base compared to the left but no wheezing. HEART: Regular rate and rhythm. ABDOMEN: Soft, non-tender. Positive bowel sounds. EXTREMITIES: Without any edema. NEUROLOGIC: He is alert and oriented times three. LABORATORY: White count 4,800, hemoglobin has dropped to 8.5, hematocrit 24.9. He does have a macrocytic presentation with his RBC indices with a platelet count that is now down to 92 compared to yesterday at 100 and his differential does continue to show a left shift. Chemistries: Blood sugars are between 150s and 180s. Yesterday his electrolytes and renal function were near baseline levels. He had 1 occult stool blood that was negative. He had a vancomycin trough at 15. MICROBIOLOGY: Stool culture is pending. Leukocyte esterase for stools was positive with Clostridium Difficile for toxin A and B being negative. RADIOLOGY: A repeat chest x-ray this morning of 2 view chest per radiology interpretation shows grossly stable airspace opacities within the right lung with a small right pleural effusion. ASSESSMENT: 1. Exacerbation of chronic obstructive pulmonary disease with right middle and lower lobe pneumonia, community acquired, secondary to recent influenza pneumonitis due to Influenza A with the patient having significant co-morbidities including current lung cancer requiring more aggressive management with concerns for possible Pseudomonas infection. 2. Viral pneumonia versus pneumonitis secondary to influenza A with a continued secondary bacterial pneumonia as noted in #1. 3. Sepsis with the patient initially showing to be hypotensive and tachycardic and febrile with leukocytosis on admission secondary to #1 and #2, improving with treatment. 4. 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 5. Electrolyte imbalance with hyponatremia and hypokalemia, resolved back to baseline after fluids. 6. Elevated D-dimer with no evidence of a pulmonary embolus on CTA, felt to be due to metastatic process as well as cancer of the lung and underlying developing pneumonia. 7. History of hypertension, although hypotensive on admission with last echocardiogram in 2008 showing a normal systolic function and ejection fraction of 65% with the patient showing to be hemodynamically stable after fluid resuscitation. 8. Diabetes mellitus, type 2, stable. 9. Chronic tobacco abuse with chronic nicotine addiction in a patient with a history of chronic obstructive pulmonary disease. PLAN: Will continue with aggressive management. In regards to his antibiotics, however, will start to deescalate as today will drop off vancomycin and continue with treatment with the concern being more for Pseudomonas, therefore will leave him on Cefepime and Levaquin. He is continued on Solu-Medrol and will stair step him down to oral prednisone. Dr. Francis continues to follow the patient in regards to the possible need for a diagnostic therapeutic thoracentesis, however at this point the pleural effusion on the right seems to be fairly small and stable, but will continue to follow along with Dr. Francis. Will repeat labs as needed in the morning as well as repeat a chest x-ray. Once he can transition to outpatient management he will need close followup with his primary who is Dr. Perez and design printer balloon, Dr. Valentin, and oncologist, Dr. Morrow. He will also need to go home on oxygen. Will qualify him and should he qualify, he will need a prescription prior to discharge. He feels like he would benefit from oxygen anyway as he has been short of breath prior to this episode, therefore will assess him with an ambulation study as soon as possible. [facility][id number] [facility]
[2018-06-19] MEDS ORDERED: CEFEPIME 2 GM VIAL ONE ×3 (04:03→21:17)
[2018-06-19] MEDS: KCL 20 MEQ/NS 1,000 ML IVS PRN ×2 (04:53→21:43)
[2018-06-19] MEDS: CEFEPIME 2 GM in SODIUM CHL 0.9% 50ML MIN-BAG+ 50 ML IVPB SCH ×3 (05:37→21:41)
[2018-06-19] MEDS: SODIUM CHLORIDE 0.9% (FLUSH) 10 ML SYG IV PRN (06:00)
[2018-06-19] MEDS: PANTOPRAZOLE SODIUM IV 40 MG VIAL IV SCH (06:00)
[2018-06-19] MEDS: INSULIN LISPRO 100 UNITS/ML PEN SUBCU SCH ×4 (07:27→21:44)
--- NOTE | 2018-06-19 07:34 | RAD ---
EXAM DESCRIPTION: Chest,2 Views CLINICAL HISTORY: fu up effusion COMPARISON: June 18, 2018 FINDINGS: Two-view chest x-ray shows mild enlargement of the cardiac silhouette without pulmonary vascular congestion. The left lung is normally aerated with mild increased interstitial thickening in the left anterior lower chest similar to previous. Interstitial nodular airspace densities in the right mid to lower chest is less dense than previous exam. Mild right lateral pleural thickening is seen. Decreased blunting of the right costophrenic angle since previous exam is noted. Volume loss in the right lower chest with elevation of the hemidiaphragm is seen.. Moderate disc degenerative changes of the spine are noted. IMPRESSION: Mild interval improvement of airspace opacifications in the right hemithorax with stable volume loss. Interval decrease in right pleural effusion compared to previous exam. Electronically signed by: Ranulfo Blackmon MD 06/19/2018 7:32 AM THREAD WINDER
[2018-06-19] MEDS: BIFIDOBACTERIUM INFANTIS 4 MG CAP PO SCH (08:29)
[2018-06-19] MEDS: ENOXAPARIN SODIUM 40 MG/0.4 ML SYG SUBCU SCH (08:29)
[2018-06-19] MEDS: CELECOXIB 100 MG CAP PO SCH (08:29)
[2018-06-19] MEDS: CARVEDILOL 3.125 MG TAB PO SCH ×2 (08:29→21:40)
[2018-06-19] MEDS: predniSONE 20 MG TAB PO SCH (08:29)
[2018-06-19] MEDS: OSELTAMIVIR 75 MG CAP PO SCH ×2 (08:30→21:40)
[2018-06-19] MEDS: BUDESONIDE NEBS 0.5 MG/2 ML VIAL NEB SCH ×2 (08:40→20:45)
[2018-06-19] MEDS: IPRATROPIUM/ALBUTEROL 3 ML VIAL INH SCH ×4 (08:40→20:45)
[2018-06-19] MEDS ORDERED: POTASSIUM CHLORIDE 20 MEQ TAB PO ONE (09:11)
[2018-06-19] MEDS ORDERED: diphenhydrAMINE HCL 25 MG CAP PO ONE (12:30)
[2018-06-19] MEDS ORDERED: diphenhydrAMINE HCL 25 MG CAP PO PRN (13:27)
--- NOTE | 2018-06-19 13:56 | PN ---
SUPERVISING PHYSICIAN: Tyrese Perez MD DATE: 06/19/18 SUBJECTIVE: The patient is sitting up in his bed. He complains of some lower back pain, but feels it is from stiffness and lying in bed. He also said he would like his [id number]-[id number] sleeping aid restarted as sometimes that helps with his sleep. I said I would start it, but he does have a sleeping pill ordered. He gets some shortness of breath with exertion and is quite concerned about going home and his oxygen being low. He is also quite concerned with having low blood sugars. I discussed buying a blood sugar machine and what ranges needed to be treated and to take fasting blood sugars and record them so he could take them to his primary care physician's office visit. OBJECTIVE: VITAL SIGNS: Temperature 98.7. Heart rate 68. Blood pressure 119/69. Respiratory rate 20. O2 saturation 97% on 2 liters nasal cannula. RESPIRATORY: Diminished at the bases with some distant breath sounds, but otherwise clear to auscultation. CARDIAC: Regular rate and rhythm. GASTROINTESTINAL: Abdomen is soft, nondistended, nontender. Bowel sounds are positive. NEUROLOGIC: Awake, alert and oriented times three. LABORATORY: WBCs 3.3, hemoglobin 8.9, hematocrit 26.1, platelet count 89. Blood sugars have run between 65 and 151. Stool culture is pending. Chest x- ray shows mild interval improvement of airspace opacities on the right. Hemithorax with stable volume loss. Interval decrease in right pleural effusion compared to previous exam. All other labs and films have been reviewed via the EMR. ASSESSMENT: 1. Exacerbation of chronic obstructive pulmonary disease with right middle and lower lobe pneumonia, community acquired, secondary to recent influenza pneumonitis due to Influenza A with the patient having significant co-morbidities including current lung cancer requiring more aggressive management with concerns for possible Pseudomonas infection. 2. Viral pneumonia versus pneumonitis secondary to influenza A with a continued secondary bacterial pneumonia as noted in #1. 3. Sepsis with the patient initially showing to be hypotensive and tachycardic and febrile with leukocytosis on admission secondary to #1 and #2, improving with treatment. 4. 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 5. Electrolyte imbalance with hyponatremia and hypokalemia, resolved back to baseline after fluids. 6. Elevated D-dimer with no evidence of a pulmonary embolus on CTA, felt to be due to metastatic process as well as cancer of the lung and underlying developing pneumonia. 7. History of hypertension, although hypotensive on admission with last echocardiogram in 2008 showing a normal systolic function and ejection fraction of 65% with the patient showing to be hemodynamically stable after fluid resuscitation. 8. Diabetes mellitus, type 2, stable. 9. Chronic tobacco abuse with chronic nicotine addiction in a patient with a history of chronic obstructive pulmonary disease. PLAN: We will continue present supportive care. He is continuing on cefepime and Levaquin. I have also done an ambulation study for home oxygen and he has met qualifications for home O2. I will also speak with Dr. Francis as he has seen the patient today and we will go with his recommendations. I have ordered lab and chest x-ray in the morning. I will also ordered home O2 today so it can be ready for his discharge. We will continue to monitor the patient closely and follow as needed. Dr. Perez is the collaborating physician and available for consultation. #[id number] [facility]
[2018-06-19] MEDS: IV SET AND CAP CHANGE INJ INJ SCH (13:57)
[2018-06-19] MEDS ORDERED: SODIUM CHL 0.9% 50ML MIN-BAG+ 50 ML IVPB ONE ×2 (14:49→21:16)
[2018-06-19] MEDS: levoFLOXacin 750MG IV 750 MG in PREMIX BAG 1 BAG IVPB SCH (15:21)
[2018-06-19] MEDS: SIMVASTATIN 20 MG TAB PO SCH (21:39)
[2018-06-19] MEDS: ASPIRIN (CHEWABLE) 81 MG TAB PO SCH (21:40)
[2018-06-19] MEDS: CYANOCOBALAMIN 1,000 MCG TAB PO SCH (21:40)
[2018-06-19] MEDS: DOXYLAMINE SUCCINATE 25 MG PO SCH (21:40)
[2018-06-19] MEDS: LOSARTAN POTASSIUM 100 MG TAB PO SCH (21:40)
[2018-06-19] MEDS: TEMAZEPAM 15 MG CAP PO PRN (21:42)
[2018-06-20] MEDS ORDERED: CEFEPIME 2 GM VIAL ONE (05:23)
[2018-06-20] MEDS ORDERED: SODIUM CHL 0.9% 50ML MIN-BAG+ 50 ML IVPB ONE (05:23)
[2018-06-20] MEDS: PANTOPRAZOLE SODIUM IV 40 MG VIAL IV SCH (06:03)
[2018-06-20] MEDS: CEFEPIME 2 GM in SODIUM CHL 0.9% 50ML MIN-BAG+ 50 ML IVPB SCH (06:04)
[2018-06-20] MEDS: SODIUM CHLORIDE 0.9% (FLUSH) 10 ML SYG IV PRN (06:04)
--- NOTE | 2018-06-20 07:11 | RAD ---
EXAM DESCRIPTION: Chest,2 Views CLINICAL HISTORY: pleural effusion COMPARISON: June 19, 2018 FINDINGS: Again seen is some poorly defined alveolar opacity in the right lung base with a questionable tiny right-sided effusion, all unchanged from yesterday. There is additional patchy alveolar opacity in the left lung base, also stable. No left-sided effusion. No new airspace consolidation. The cardiomediastinal silhouette is unremarkable. IMPRESSION: Bibasilar pneumonia, worse on the right side, all unchanged from yesterday. Question tiny right-sided effusion, but no new abnormality. Electronically signed by: Cesario Moreno MD 06/20/2018 7:09 AM SHELLF[employer] PROCESSING [employer]ORER
[2018-06-20] MEDS: INSULIN LISPRO 100 UNITS/ML PEN SUBCU SCH ×2 (07:30→11:38)
[2018-06-20] MEDS: BUDESONIDE NEBS 0.5 MG/2 ML VIAL NEB SCH (08:45)
[2018-06-20] MEDS: IPRATROPIUM/ALBUTEROL 3 ML VIAL INH SCH ×2 (08:45→13:35)
[2018-06-20] MEDS: CELECOXIB 100 MG CAP PO SCH (09:06)
[2018-06-20] MEDS: BIFIDOBACTERIUM INFANTIS 4 MG CAP PO SCH (09:06)
[2018-06-20] MEDS: OSELTAMIVIR 75 MG CAP PO SCH (09:07)
[2018-06-20] MEDS: ENOXAPARIN SODIUM 40 MG/0.4 ML SYG SUBCU SCH (09:07)
[2018-06-20] MEDS: CARVEDILOL 3.125 MG TAB PO SCH (09:07)
[2018-06-20] MEDS: predniSONE 20 MG TAB PO SCH (09:07)
[2018-06-20 14:13] VITALS: BP 110/83; TEMP 97.9; O2SAT 99
--- NOTE | 2018-06-25 08:37 | DS ---
SUPERVISING PHYSICIAN: Tyrese Perez MD DISCHARGE DIAGNOSIS: 1. Exacerbation of chronic obstructive pulmonary disease with right middle and lower lobe pneumonia, community acquired, secondary to recent influenza pneumonitis due to Influenza A with the patient having significant co-morbidities including current lung cancer requiring more aggressive management with concerns for possible Pseudomonas infection. 2. Viral pneumonia versus pneumonitis secondary to influenza A with a continued secondary bacterial pneumonia as noted in #1. 3. Sepsis with the patient initially showing to be hypotensive and tachycardic and febrile with leukocytosis on admission secondary to #1 and #2, improving with treatment. 4. 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 5. Electrolyte imbalance with hyponatremia and hypokalemia, resolved back to baseline after fluids. 6. Elevated D-dimer with no evidence of a pulmonary embolus on CTA, felt to be due to metastatic process as well as cancer of the lung and underlying developing pneumonia. 7. History of hypertension, although hypotensive on admission with last echocardiogram in 2008 showing a normal systolic function and ejection fraction of 65% with the patient showing to be hemodynamically stable after fluid resuscitation. 8. Diabetes mellitus, type 2, stable. 9. Chronic tobacco abuse with chronic nicotine addiction in a patient with a history of chronic obstructive pulmonary disease. HISTORY OF PRESENT ILLNESS: Mr. Selby is a 73-year-old male patient that has a history of small cell lung cancer with brain metastasis. He presented to the Emergency Room on the day of admission complaining of increasing dyspnea, cough and congestion that started the previous Saturday. He had tried anfy-pdu-limcrju remedies and nothing helped. He was going to go to Dr. Perez's office on the day of admission, but was having significant shortness of breath and then presented to the ER. In the Emergency Room, he was denying any chest pains but was obviously short of breath at rest and even more so with exertional effort. Vital signs showed he was tachycardic at 127, satting 87% on room air with a temperature 98.8 and blood pressure 91/67. Initial chest x-ray indicated he had the interval development of consolidative changes in the right middle and lower lobes concerning for underlying pneumonia. His lab work indicated he had an elevated D-dimer at 7.32. Given that he was tachycardic and short of breath, a CT of the chest was done to further rule out any pulmonary embolus. The CTA of the chest showed there was note of no evidence of acute significant cardiopulmonary embolus. There was note of significant volume loss in the right hemithorax since his cancer treatment with reticulation and fibrosis in the right upper lobe along with emphysematous changes and scattered multifocal glass densities indicating eosinophilic like response in the lower lobe with volume loss. There is also note of a new large right pleural effusion. The left lung base was noted to be stable. The patient was given some fluids and started on antibiotics to include Rocephin and azithromycin, and given supplemental oxygen which did raise his O2 levels up to 96% on 3.5 liters nasal cannula. Given the patient's symptoms and underlying co-morbidities to include lung cancer and findings on CT concerning for developing right sided pneumonia, he was admitted to the hospital. HOSPITAL COURSE: He was admitted for community acquired pneumonia and given that he had multiple factors including current findings on CTA of the chest to indicate a significant pneumonia process with underlying lung cancer, he was treated aggressively. It is also to be noted that a positive flu. He was started on cefepime and Levaquin for concerns of possible Pseudomonas and vancomycin for coverage for gram positive with concerns of multi-drug resistant Staphylococcus aureus. He had aggressive pulmonary hygiene with DuoNeb breathing treatments and was given Solu-Medrol IV for his chronic obstructive pulmonary disease and his dosing was tapered down. He also was given Tamiflu for treatment of the flu. He had IV fluids to help with his electrolyte imbalance and for the large pleural effusion, Dr. Francis was consulted to see if there was possible need for surgical intervention with thoracentesis for this patient. Over the next few days, he had an ambulatory study that showed he required O2 at home and it was ordered. At one point, he had some diarrhea and Dr. Francis requested the patient remain and we would watch him over the next day or two to see if he would require thoracentesis. We continued aggressive management with his Levaquin, cefepime and vancomycin as well as watching him for his underlying cancer problems. His IV Solu-Medrol was titrated down to oral prednisone. At one point, his hemoglobin and hematocrit dropped fairly low and we were watching in case he needed a blood transfusion. Dr. Francis was watching him for need for therapeutic thoracentesis. His hemoglobin and hematocrit improved. His vancomycin was discontinued. He was continued on his cefepime and Levaquin. At this point, he is ready to be discharged home in stable condition. LABORATORY: Initial WBC 3.5. It varied between 3.1 and 4.8. At discharge today, it is 3.1. Hemoglobin and hematocrit dropped as low as 8.5 and 24.9, but rebounded to 8.9 and 26.1. Today, it has remained approximately the same as yesterday and hemoglobin is 8.9 and hematocrit 25.6. He had a left shift the entire time he was in the hospital. Platelet count ran as low as 87. It got up to 119 on admission and was 87 today on discharge. Blood sugars ran from a low of 65 to as high as 237. His sodium on admission was 132 and today was 138. Potassium 3.4 which required supplementation and is now 3.9. Serum osmolality on admission was 265.7 and is now 274.6. Magnesium was 1.9 today. Total bilirubin on admission was 7.3 and is now 0.6. Liver enzymes were basically within normal limits. He did have a slightly elevated BNP at 281. Urinalysis was unremarkable on admission. Stool for occult blood was negative times 2. MICROBIOLOGY: Blood cultures showed no growth after 5 days. Stool cultures showed only gram positive ryann and no normal gram negative ryann seen. He had presence of WBCs on his fecal leukocyte. C. difficile was negative for antigen and toxin. RADIOLOGY: Initial chest CT and chest/thorax CTA were discussed in the history of present illness. Today's chest x-ray showed bibasilar pneumonia, worse on the right side, but all unchanged from the previous day. Tiny right sided effusion, but no new abnormality. DISCHARGE PLAN: The patient will be discharged home in stable condition. He is to have home oxygen. He is going home with a portable set and will receive it from [facility] tomorrow. He is to resume his previous diet and increase activity as tolerated. He is to followup with Dr. Perez on 06/26/18 at 9:15 AM. He also will need an appointment with his knitted cloth examiner, Dr. Valentin. I have also sent him home on some cefdinir as well as prednisone taper. He also should be taking a probiotic or Align twice daily. He received 5 doses of Levaquin which should be adequate. If he needs some additional dosing, Dr. Perez can prescribe that for him. He is to return to the hospital or followup with Dr. Perez's office for any problems or complications. DISCHARGE MEDICATIONS: 1. Simvastatin. 2. Losartan. 3. Baby aspirin. 4. Carvedilol. 5. Omeprazole. 6. Celebrex. 7. Melatonin. 8. Unisom OTC. 9. Cyanocobalamin tablets. 10. Align. 11. Cefdinir. 12. Prednisone taper. #[id number] [facility]
== END 2018-06-20 15:20 | disposition home or self-care (01) | DRG 871 ==
LOC: ER 09:30 → OBSVTOIN 13:03 → MS 13:03
PROVIDERS: ADMIT Nurse Practitioner Family; ATTEND Nurse Practitioner Acute Care
PROC: B32T1ZZ Computerized Tomography (CT Scan) of Left Pulmonary Artery using Low Osmolar Contrast (ICD-10-PCS; principal; 2018-06-16)
PROC: B32S1ZZ Computerized Tomography (CT Scan) of Right Pulmonary Artery using Low Osmolar Contrast (ICD-10-PCS; 2018-06-16)
DX: A41.9 Sepsis, unspecified organism (principal); J18.1 Lobar pneumonia, unspecified organism; C34.91 Malignant neoplasm of unspecified part of right bronchus or lung; C79.31 Secondary malignant neoplasm of brain; J44.1 Chronic obstructive pulmonary disease with (acute) exacerbation; J44.0 Chronic obstructive pulmonary disease with (acute) lower respiratory infection; E87.1 Hypo-osmolality and hyponatremia; I25.10 Atherosclerotic heart disease of native coronary artery without angina pectoris; R79.89 Other specified abnormal findings of blood chemistry; E11.51 Type 2 diabetes mellitus with diabetic peripheral angiopathy without gangrene; E87.6 Hypokalemia; E66.9 Obesity, unspecified; F17.210 Nicotine dependence, cigarettes, uncomplicated; Z79.1 Long term (current) use of non-steroidal anti-inflammatories (NSAID); Z95.820 Peripheral vascular angioplasty status with implants and grafts; Z79.899 Other long term (current) drug therapy; Z79.82 Long term (current) use of aspirin; Z92.3 Personal history of irradiation; Z92.21 Personal history of antineoplastic chemotherapy; Z68.29 Body mass index [BMI] 29.0-29.9, adult

== ENCOUNTER 2018-08-27 12:57 | Emergency (ER) | payer MEDICARE, OTHER ==
[2018-08-27] MEDS ORDERED: SODIUM CHLORIDE 0.9% 1000ML 1,000 ML IVS ONE ×3 (13:25→17:03)
--- NOTE | 2018-08-27 13:42 | ED.PDOC ---
History of Present Illness - General Chief Complaint: Respiratory Problem Stated Complaint: shortness of breath Time Seen by Provider: 08/27/18 13:23 Source: patient, RN notes reviewed, Vital Signs reviewed, family Exam Limitations: no limitations - History of Present Illness Initial Comments: Family reports he began running a fever yesterday & that he doesn't seem to be getting any better in terms of his dyspnea for at least a week. Recently treated for pneumonia & has been restarted on his steroids. Nonproductive cough. No h/o HF. Timing/Duration: 24 hours Severity: moderate Worsening Factors: nothing Associated Symptoms: cough, fever/chills, headaches, shortness of breath, weakness Allergies/Adverse Reactions: Allergies NO KNOWN ALLERGY Allergy (Verified 06/16/18 13:58) Home Medications: Ambulatory Orders Aspirin [Baby Aspirin] 162 mg PO BEDTIME 12/06/14 Losartan Potassium [Cozaar] 100 mg PO BEDTIME 12/06/14 Simvastatin [Zocor] 40 mg PO BEDTIME 12/06/14 Carvedilol 3.125 mg PO BID 06/16/18 Celecoxib 200 mg PO DAILY 06/16/18 Cyanocobalamin [B12] 1,000 mcg PO BEDTIME 06/16/18 Omeprazole [Omeprazole Dr] 20 mg PO DAILY 06/16/18 Diphenhydramine HCl (Sleep) [Unisom Sleepgels] 50 mg PO BEDTIME PRN 06/19/18 Dexamethasone Tab [Decadron Tab] 1 mg PO BID 08/27/18 Review of Systems - Review of Systems Constitutional: States: see HPI EENTM: States: no symptoms reported Respiratory: States: see HPI Cardiology: States: no symptoms reported Gastrointestinal/Abdominal: States: nausea. Denies: abdominal pain, diarrhea, vomiting Genitourinary: States: no symptoms reported Musculoskeletal: States: no symptoms reported Skin: States: no symptoms reported Neurological: States: see HPI Hematologic/Lymphatic: States: no symptoms reported Past Medical History (General) - Patient Medical History Hx Seizures: No Hx Stroke: No Hx Asthma: No Hx of COPD: Yes Hx Cardiac Disorders: Yes - arrhythmia Hx Congestive Heart Failure: No Hx Pacemaker: No Hx Hypertension: Yes Hx Diabetes: No Hx Gastroesophageal Reflux: Yes Hx Cancer: Yes - lung with mets to brain Hx MRSA: No Surgical History: other - Vaccination History Hx Tetanus, Diphtheria Vaccination: No Hx Influenza Vaccination: Yes - 2017 Hx Pneumococcal Vaccination: Yes - Social History Hx Tobacco Use: Yes Hx Alcohol Use: No Hx Substance Use: No Hx Physical Abuse: No Hx Emotional Abuse: No Family Medical History - Family History Father Family History: No Known Living Status: Physical Exam - Physical Exam General Appearance: Alert, Comfortable, Other - tachypneic Eye Exam: bilateral normal Ears, Nose, Throat: normal ENT inspection, other - dry mucosa; hard of hearing Neck: full range of motion, supple, normal inspection Respiratory: respiratory distress, decreased breath sounds, wheezing Cardiovascular/Chest: regular rate, rhythm, no edema, no gallop, no murmur, tachycardia Gastrointestinal/Abdominal: non tender, soft, no organomegaly Back Exam: normal inspection Extremity: normal range of motion, non-tender, normal inspection, no pedal edema 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 HR 118. SBP 93. 08/27/18 14:46 HR 122; SBP 98; MAP 69. Much less wheezing on exam. Late Note: 1730: have discussed the case with his hydrologic modeler Dr. Valentin. He agrees with the plan for a chest tube. 103/63; HR 125; 24; SaO2 92% 1745: [facility] updated - Dr. Clemens 08/27/18 18:17 93/65; HR 121, 20, 92%. Appears more comfortable. Jovial. 3rd liter of fluid infusing. Antibiotics have been given. Chest tube with approx 550 ml of fluid in the Pleuravac. - Results/Orders Results/Orders: WBC 2.6 Bands 11 Hgb8.5 Cr 1.2 CO2 17 Lactic acid 2.3 - EKG/XRAY/CT EKG: Sinus, Tachy, RBBB - ST @ 129; nml axis, RBBB, nml ST segments & T waves XRAY: chest - Possible right apical PTX unchanged from 07/[address] Ordered: Yes - CT chest: mod right PTX & effusion. d/w radiologist - Consult/PCP Time Called: 14:50 Consult/PCP: Dr. Clemens - ED Consult Reason/Comments: will CT chest - Additional EKG/XRAY/Consults XRAY #2: chest - Post chest tube: decreased effusion & PTX Procedures - Chest Tube Right Mid-Axillary Chest Size of Telugu Tube (cm): 36 Chest Tube Procedure Prep: betadine prep, sterile drapes applied, sterile dressing applied Anesthesia: 1% Lidocaine w/ Epi Volume Anesthetic (cc's): 10 Cerna of Air [place]: Yes Number of Attempts: 1 Time of Successful Intubation: 17:40 Tube Drainage: see nurses notes Tube Sutured to Skin: Yes Post Procedure CXR?: Yes - decreased effusion & air Departure - Departure Clinical Impression: Pneumothorax on right, Severe sepsis Pneumonia Qualifiers: Pneumonia type: due to unspecified organism Laterality: right Lung location: lower lobe of lung Qualified Code(s): J18.1 - Lobar pneumonia, unspecified organism Time of Disposition: 17:53 Disposition: Transfer to Hospital Condition: Fair Home Medications: Ambulatory Orders Aspirin [Baby Aspirin] 162 mg PO BEDTIME 12/06/14 Losartan Potassium [Cozaar] 100 mg PO BEDTIME 12/06/14 Simvastatin [Zocor] 40 mg PO BEDTIME 12/06/14 Carvedilol 3.125 mg PO BID 06/16/18 Celecoxib 200 mg PO DAILY 06/16/18 Cyanocobalamin [B12] 1,000 mcg PO BEDTIME 06/16/18 Omeprazole [Omeprazole Dr] 20 mg PO DAILY 06/16/18 Diphenhydramine HCl (Sleep) [Unisom Sleepgels] 50 mg PO BEDTIME PRN 06/19/18 Dexamethasone Tab [Decadron Tab] 1 mg PO BID 08/27/18 Critical Care Note - Critical Care Note Total Time (mins): 45 Transfer to Outside Facility - Transfer Information Accepting Provider:: Dr. Clemens Accepting Facility: [facility] Reason for Transfer: required specialist not available
[2018-08-27] MEDS ORDERED: PIPERACILLIN/TAZOBACTAM 3.375 GM in SODIUM CHLORIDE 0.9% 100ML 100 ML IVPB ONE (14:28)
--- NOTE | 2018-08-27 14:34 | RAD ---
Procedure: XR CHEST 1 VIEW Exam Date: 08/27/2018 Ordering Provider: JESSICA HAJI Clinical Indication: fever Comparison: 07/30/2018 Findings: Cardiomediastinal silhouette is within normal limits. Opacities in the right mid and lower lung suspicious for pneumonia. Left lung is clear. No large pleural effusion. Suspect a right apical and basilar pneumothorax approximately 1 cm pleural separation at the apex and 2 cm pleural separation at the base. No acute osseous abnormality. Impression: 1. Opacities in the right mid and lower lung likely representing pneumonia. 2. There is suspicion for a small right apical and basilar pneumothorax. No mediastinal shift. Findings discussed with Dr. Haji at the time of dictation. Electronically signed by: Shailesh Marie MD 08/27/2018 2:31 PM CDT
[2018-08-27] MEDS ORDERED: SODIUM CHLORIDE 0.9% 100ML 100 ML IVPB ONE (14:39)
[2018-08-27] MEDS ORDERED: PIPERACILLIN/TAZOBACTAM 3.375 GM VIAL IVPB ONE (14:39)
[2018-08-27] MEDS ORDERED: ACETAMINOPHEN 500 MG TAB PO ONE (15:40)
[2018-08-27] MEDS ORDERED: LEVALBUTEROL NEBS 1.25 MG/3 ML VIAL NEB ONE (15:46)
[2018-08-27] MEDS ORDERED: POVIDONE IODINE 10 % 15 ML UD TOP ONE ×2 (15:56→17:17)
--- NOTE | 2018-08-27 15:57 | CT ---
CT CHEST WITH IV CONTRAST HISTORY: 73 years Male dyspnea COMPARISON: Same day chest radiographs. CT chest dated June 16, 2018 TECHNIQUE: Helical tomographic images of the chest were obtained after the intravenous administration of 100 cc of Isovue-370. Coronal and sagittal reformatted images were also provided. This exam was performed according to our departmental dose-optimization program, which includes automated exposure control, adjustment of the mA and/or kV according to patient size and/or use of iterative reconstruction technique. FINDINGS: Moderate right pneumothorax. Moderate right pleural effusion, dependently positioned, stable to minimally increased from the prior comparison CT. No evidence of pleural thickening or enhancement to suggest empyema. No definite bronchopleural fistula is observed by CT, although this may be difficult to appreciate if present secondary to respiratory motion. The effusion closely approximates the right lateral aspect of the midesophagus. There is decreased conspicuity of the esophageal wall at this location, although this may be secondary to respiratory motion. Severe radiologic changes of emphysema are again demonstrated. Scattered consolidative and groundglass opacities are again seen throughout the right upper lobe with interlobular septal thickening, consistent with history of malignancy. Right perihilar atelectasis and/or scarring is again seen, similar to the prior study. Heart size normal. No significant pericardial fluid. No enlarged mediastinal or hilar lymph nodes observed. Mild diffuse wall thickening throughout the mid to distal esophagus. Right lateral margin of the midesophagus is indistinct and approximates the right pleural fluid as discussed. There are scattered atherosclerotic changes noted, including involvement of the coronary arteries. Included osseous structures demonstrate no definite acute abnormality. Scattered degenerative changes are seen throughout the included spine. Included surrounding soft tissues demonstrate no definite acute process. IMPRESSION: Moderate right hydropneumothorax. This is of indeterminate etiology. Pleural effusion closely approximates the right lateral wall of the midesophagus which demonstrates diffuse wall thickening and an indistinct margin adjacent to the pleural effusion. Esophagopleural fistula would be difficult to exclude. Pleural fluid appears similar to slightly increased since the prior comparison study. Otherwise stable appearance of the chest with redemonstrated scattered opacities and interlobular septal thickening throughout the right upper lobe, consistent with history of malignancy. Findings discussed with the referring provider, Dr. Davalos, at approximately 3:30 PM on 08/27/2018. Electronically signed by: Shane Wilcox MD 08/27/2018 3:54 PM CDT
[2018-08-27] MEDS ORDERED: LIDOCAINE 1% W/ EPINEPHRINE 20 ML VIAL INJ ONE (17:16)
--- NOTE | 2018-08-27 18:00 | RAD ---
EXAM: Chest,1 View CLINICAL INDICATION: Chest tube placement COMPARISON: 08/27/2018 FINDINGS: A single view of the chest reveals a new right-sided chest tube. A small right pneumothorax is still visible at the right lung base laterally, although it appears improved from the previous study. There is consolidation and infiltrate in the mid right lung, about the right hilum. The left lung remains clear. The heart size and pulmonary vessels are within normal limits. IMPRESSION: Status post placement of right-sided chest tube with improvement in right pleural effusion. Electronically signed by: Alvarez Del Cid MD 08/27/2018 5:57 PM CDT
[2018-08-27 18:12] VITALS: TEMP 100.7
[2018-08-27 18:43] VITALS: BP 99/66; O2SAT 97
== END 2018-08-27 18:43 | disposition short-term general hospital (02) ==
LOC: ER 12:57
DX: J93.9 Pneumothorax, unspecified (principal); A41.9 Sepsis, unspecified organism; J18.1 Lobar pneumonia, unspecified organism; I45.10 Unspecified right bundle-branch block; J44.9 Chronic obstructive pulmonary disease, unspecified; I10 Essential (primary) hypertension; K21.9 Gastro-esophageal reflux disease without esophagitis; Z87.891 Personal history of nicotine dependence; Z85.118 Personal history of other malignant neoplasm of bronchus and lung; Z85.841 Personal history of malignant neoplasm of brain; Z87.01 Personal history of pneumonia (recurrent); Z79.82 Long term (current) use of aspirin; Z79.899 Other long term (current) drug therapy
CPT/HCPCS: 36415; 71045; 71260; 80053; 83605; 85025; 87040; 93005; 94640; J2543; J7030; J7050; J7614